=== PATIENT | male | born 1980 | race African-American/Black ===

== ENCOUNTER 2018-01-28 12:18 | Emergency (ER) | payer SELFPAY ==
[~2018-01-28] VITALS: Ht 188 cm; Wt 125.0 kg
[2018-01-28] MEDS ORDERED: AUGMENTIN875TAB PO (14:33)
[2018-01-28 14:40] VITALS: BP 148/84
== END 2018-01-28 14:40 | disposition home or self-care (01) | DRG 153 ==
LOC: ED 12:18
DX: J32.9 Chronic sinusitis, unspecified (principal); R51 Headache; F17.210 Nicotine dependence, cigarettes, uncomplicated

== ENCOUNTER 2021-06-16 12:25 | Emergency (ER) | payer SELFPAY ==
[~2021-06-16] VITALS: Ht 188 cm; Wt 159.0 kg
[~2021-06-16 12:25] MED LIST: AUGMENTIN875TAB PO
[2021-06-16 12:46] LABS: HEMATOCRIT 46.3 % (39.0-50.0); HEMOGLOBIN 14.6 g/dl (14.0-18.0); IMMATURE GRANULOCYTES 0.3 % (0.0-5.0); MEAN CELL VOLUME 72.1 fL CALC (80.0-100.0); MEAN CORPUSCULAR HGB 22.7 pG CALC (26.0-32.0); MEAN CORPUSCULAR HGB CONC 31.5 g/dL CAL (32.0-36.0); NEUT# 3.73 thou/uL (1.82-7.42); RED BLOOD COUNT 6.42 mill/uL (4.70-6.10); RED CELL DISTRI WIDTH 17.4 % (11.5-15.5)
[2021-06-16 12:58] LABS: INTERNATIONAL NORMALIZED RATIO 0.9 RATIO (0.7-1.3); PROTHROMBIN TIME 9.7 SECONDS (9.0-12.5)
[2021-06-16 12:59] LABS: ALBUMIN 4.5 g/dL (3.2-5.0); ALKALINE PHOSPHATASE 64 u/l (38-126); ANION GAP 14 (6-22 (CALC)); BILIRUBIN, TOTAL 0.4 mg/dL (0.0-1.4); BUN 12 mg/dL (9-20); BUN/CREATININE RATIO 11 (12-20 (CALC)); CHLORIDE 106 mmol/l (95-108); CREATININE 1.1 mg/dL (0.7-1.3); GFR > 60 ML/MIN (>=60 (CALC)); GFR FOR AFR.AMER. > 60 ML/MIN (>=60 (CALC)); LIPASE 73 u/l (23-300); POTASSIUM 3.6 mmol/l (3.5-5.1); SGOT/AST 34 u/l (17-59); SODIUM 137 mmol/l (137-146); TOTAL PROTEIN 8.7 g/dL (6.3-8.2)
[2021-06-16 13:00] LABS: CARBON DIOXIDE 21 mmol/l (22-30)
[2021-06-16 14:02] VITALS: BP 137/95
== END 2021-06-16 14:03 | disposition short-term general hospital (02) | DRG 282 ==
LOC: ED 12:25
PROVIDERS: Nurse Practitioner
DX: I21.3 ST elevation (STEMI) myocardial infarction of unspecified site (principal); F17.200 Nicotine dependence, unspecified, uncomplicated